=== PATIENT | male | born 1955 | race Caucasian/White ===

== ENCOUNTER 2020-09-22 | Outpatient (REF) | payer MEDICARE, SELFPAY | END 2020-09-22 00:01 | disposition home or self-care (01) | LOC: HO.LNP | PROVIDERS: Visit Provider Internal Medicine | DX: Z20.822 Contact with and (suspected) exposure to COVID-19 (principal); J06.9 Acute upper respiratory infection, unspecified | CPT/HCPCS: U0003; U0005 ==

== ENCOUNTER 2023-07-14 15:39 | Emergency (ER) | payer MEDICARE, SELFPAY ==
--- NOTE | ~2023-07-14 | CT_ITS ---
EXAMINATION: NONCONTRAST HEAD CT NONCONTRAST MAXILLOFACIAL CT NONCONTRAST CERVICAL SPINE CT INDICATION INFORMATION: Fall. COMPARISON: None. TECHNIQUE: Separate noncontrast CT examinations of the head, maxillofacial bones, and cervical spine were performed. Coronal and sagittal images were created for each examination at the technologist workstation. This CT examination was performed using dose optimization techniques as appropriate, variously including the following: *Automated exposure control *Adjustment of mA and/or kV according to patient size (this includes techniques or standardized protocols for targeted exams where dose is matched to indication/reason for exam; i.e. extremities or head) *Use of iterative reconstruction technique DLP: 1005 158 mGy-cm FINDINGS: Head: There is a 0.4 cm hyperdense focus in the anterior right frontal lobe (image 32 series 11) and a 5 mm hyperdense focus more superiorly in the anterior medial right frontal lobe (image 39 series 11). No evidence of edematous territorial infarction. No abnormal mass effect or midline shift is seen. Barron to white matter differentiation is well preserved. No extra-axial fluid collections are identified. No hydrocephalus. Proportional prominence of the ventricles and sulcal spaces is consistent with mild volume loss. Patchy periventricular and deep white matter hypoattenuation is consistent with mild small vessel ischemic changes. No calvarial fracture. The mastoid air cells are well aerated. Maxillofacial: Soft tissue thickening/hematoma in the right forehead. No acute maxillofacial fractures are seen. Mild reversal thickening of the paranasal sinuses. No air-fluid levels. The mandibular heads are well-seated in the condylar fossa. Severe degenerative facet arthritis of the left temporomandibular joint with associated increased sclerosis and thickening of the temporal bone. The orbits demonstrate a normal appearance bilaterally. The globes are intact, and there are no suspicious findings to suggest retrobulbar hemorrhage. Cervical spine: Straightening of the cervical lordosis. The atlantoaxial and atlantooccipital articulations are intact. No evidence of acute compression deformity or subluxation. Vertebral body heights are maintained. There is multilevel intervertebral disc space narrowing with endplate osteophyte formation and facet arthropathy. No prevertebral soft tissue swelling. No significant cervical soft tissue abnormality. Mild biapical subpleural thickening/scarring. The thyroid gland is unremarkable. CT/CT cervical spine wo IV con IMPRESSION: 1. There are 2 hyperdense foci in the anterior right frontal lobe measuring up to 5 mm. These could represent small parenchymal hemorrhages or hemorrhagic contusions in the setting of trauma, alternatively these could represent vascular tumors. Recommend further characterization with brain MRI with and without IV contrast. 2. Soft tissue thickening/hematoma in the right forehead. 3. No acute maxillofacial fractures. 4. No acute cervical fractures or malalignment. 5. Severe degenerative changes of the left temporomandibular joint with associated increased sclerosis and thickening of the temporal bone. This critical result was discussed with Lesa RITCHIE at 07/14/2023 6:09 PM and it was ascertained that the content and urgency of the report was understood at the time of direct communication.
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
[2023-07-14 16:18] VITALS: BP 157/84; PULSE 79; RESP 16; TEMP 36.7; O2SAT 97; BMI 28.7
[2023-07-14 18:51] VITALS: BP 177/94; PULSE 78; RESP 16; TEMP 37.2; O2SAT 98
[2023-07-14] MEDS: 0.9 % Sodium Chloride 1,000 ML 999 ML IV (19:30)
[2023-07-14] MEDS: Acetaminophen 325 MG TABLET 650 MG PO (19:30)
[2023-07-14 20:06] LABS: MANUAL DIFF FLAG NO
[2023-07-14 20:08] LABS: Basophils Absolute Auto 0.1 X10*3/uL (0.0-0.2); Basophils Percent Auto 0.6 % (0-2); Eosinophils Absolute Auto 0.1 X10*3/uL (0.0-0.4); Eosinophils Percent Auto 0.8 % (0-4); Hematocrit 40.6 % (42.0-52.0); Hemoglobin 14.4 g/dl (14.0-18.0); Imm Gran Abs Auto 0.02 X10*3/uL (0.00-0.03); Imm Gran Pct Auto 0.3 % (0.0-0.4); Lymphocytes Absolute Auto 1.9 X10*3/uL (1.2-4.9); Lymphocytes Percent Auto 23.8 % (20-40); Mean Corpuscular HGB Conc 35.5 g/dl (31.0-36.0); Mean Corpuscular Hemoglobin 32.1 pg (27.0-33.0); Mean Corpuscular Volume 90.6 fL (80.0-98.0); Mean Platelet Volume 10.6 fL (9.4-12.4); Monocytes Absolute Auto 0.7 X10*3/uL (0.1-1.2); Monocytes Percent Auto 9.3 % (2-11); Neutrophils Absolute Auto 5.1 x10*3/uL (2.0-8.3); Neutrophils Percent Auto 65.2 % (45-73); Platelet Count 179 X10*3/uL (160-400); Red Blood Count 4.48 X10*6/uL (4.60-5.80); Red Cell Distribution Width 12.1 % (11.0-16.0); White Blood Count 7.9 X10*3/uL (4.8-10.8)
[2023-07-14 20:17] LABS: Prothrombin Time 12.2 SEC (11.1-13.3)
[2023-07-14 20:21] LABS: Alanine Aminotransferase 21 U/L (0-40); Alkaline Phosphatase 66 U/L (39-117); Anion Gap 14 (12-20); Aspartate Amino Transferase 26 U/L (5-37); Bilirubin Total 0.7 mg/dL (0.0-1.0); Blood Urea Nitrogen 9 mg/dL (9-16); Calcium 8.5 mg/dL (8.4-10.2); Carbon Dioxide 25 mmol/L (22-29); Chloride 106 mmol/L (96-108); Creatinine Clr Calc Pharmacy 90.4; Estimated Glomerular Filt Rate > 60; Glucose Random 94 mg/dL (60-115); Potassium 3.6 mmol/L (3.3-5.1); Sodium 141 mmol/L (135-145); Total Protein 6.5 g/dL (6.5-8.0)
[2023-07-14 21:17] VITALS: BP 168/78; PULSE 78; RESP 17; TEMP 36.9; O2SAT 97
== END 2023-07-14 21:19 | disposition home or self-care (01) ==
PROVIDERS: Emergency Provider Internal Medicine; PCP Internal Medicine
DX: S06.30AA Unspecified focal traumatic brain injury with loss of consciousness status unknown, initial encounter (principal); F07.81 Postconcussional syndrome; R06.02 Shortness of breath; R51.9 Headache, unspecified; M54.2 Cervicalgia; V17.4XXA Pedal cycle driver injured in collision with fixed or stationary object in traffic accident, initial encounter; Y93.9 Activity, unspecified; Y92.410 Unspecified street and highway as the place of occurrence of the external cause; Y99.8 Other external cause status; Z79.899 Other long term (current) drug therapy
CPT/HCPCS: 36415; 70450; 70486; 72125; 80053; 85025; 85610; 99284

== ENCOUNTER 2023-10-13 10:28 | Emergency (ER) | payer MEDICARE, SELFPAY ==
--- NOTE | ~2023-10-13 | CT_ITS ---
EXAMINATION: CT HEAD WITHOUT CONTRAST CLINICAL INFORMATION: Right numbness, weakness, headache x1 week, recent intracranial hemorrhage. 68-year-old male. COMPARISON: 07/14/2023. TECHNIQUE: Contiguous axial imaging was performed from the skull base to vertex without intravenous administration of contrast. This CT examination was performed using dose optimization techniques as appropriate, variously including the following: *Automated exposure control *Adjustment of mA and/or kV according to patient size (this includes techniques or standardized protocols for targeted exams where dose is matched to indication/reason for exam; i.e. extremities or head) *Use of iterative reconstruction technique DLP: 601 mGy-cm FINDINGS: There is a large left superior hemispheric frontoparietal subdural acute on chronic hematoma present, measuring an estimated 10.3 x 1.7 x 5.2 cm (AP, TRV, CC) in dimensions. There is underlying mass effect and sulcal flattening on the frontal and anterior parietal lobes, with a resultant 7 mm [id number] midline shift. No ventricular trapping evident at this time. There is moderate effacement of the left lateral ventricle. The right lateral ventricle is mildly effaced but the temporal horn is nondilated. There is no evidence of acute territorial infarct at this time. There is no gross underlying edema. No additional definitive intra-axial or extra-axial hemorrhage is identified. There is no transtentorial herniation or uncal herniation. No uncal perching. Negative hyperdense MCA sign. Negative subinsular ribbon sign. Posterior fossa structures appear normal. Osseous structures demonstrate no definitive evidence of fracture. There are degenerative changes in both TM joints. Paranasal sinuses, mastoid air cells, and tympanic cavities are normally aerated. The globes and orbital contents appear normal. There are no extracranial soft tissue abnormalities. CT/CT head/brain wo IV con IMPRESSION: 1. Large left superior hemispheric frontoparietal subdural acute on chronic hematoma as detailed, resulting in a 7 mm [id number] midline shift. 2. No ventricular trapping, uncal herniation, or transtentorial herniation at this time. 3. No CT evidence of acute territorial infarct at this time. 4. No CT evidence of fracture. Neurosurgical consultation is advised. These emergent findings were discussed with Dr. Lesa Reeves via phone call 1:27 PM, today Electronically signed by: Shankar Horta MD 10/13/2023 01:47 PM EDT
[2023-10-13 11:00] VITALS: BP 99/70; PULSE 103; RESP 18; TEMP 36.7; O2SAT 96; BMI 27.5
--- NOTE | 2023-10-13 11:07 | ECG_ITS ---
Test Reason : weakness Blood Pressure : / mmHG Vent. Rate : 099 BPM Atrial Rate : 099 BPM P-R Int : 128 ms QRS Dur : 096 ms QT Int : 358 ms P-R-T Axes : 017 041 048 degrees QTc Int : 459 ms Normal sinus rhythm Normal ECG No previous ECGs available Referred By: Lesa Barrera Electronically Signed By:KIMBERLY VALENTE
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
[2023-10-13 11:53] LABS: MANUAL DIFF FLAG NO
[2023-10-13 11:55] LABS: Basophils Absolute Auto 0.1 X10*3/uL (0.0-0.2); Basophils Percent Auto 0.9 % (0-2); Eosinophils Absolute Auto 0.1 X10*3/uL (0.0-0.4); Hematocrit 45.5 % (42.0-52.0); Hemoglobin 16.4 g/dl (14.0-18.0); Imm Gran Abs Auto 0.04 X10*3/uL (0.00-0.03); Imm Gran Pct Auto 0.5 % (0.0-0.4); Lymphocytes Absolute Auto 1.7 X10*3/uL (1.2-4.9); Lymphocytes Percent Auto 21.2 % (20-40); Mean Corpuscular Hemoglobin 32.3 pg (27.0-33.0); Mean Corpuscular Volume 89.7 fL (80.0-98.0); Mean Platelet Volume 9.6 fL (9.4-12.4); Monocytes Absolute Auto 0.7 X10*3/uL (0.1-1.2); Neutrophils Absolute Auto 5.4 x10*3/uL (2.0-8.3); Neutrophils Percent Auto 67.4 % (45-73); Platelet Count 269 X10*3/uL (160-400); Red Blood Count 5.07 X10*6/uL (4.60-5.80); Red Cell Distribution Width 11.9 % (11.0-16.0); White Blood Count 8.1 X10*3/uL (4.8-10.8)
[2023-10-13 12:03] VITALS: BP 145/87; PULSE 96; RESP 25; TEMP 36.8; O2SAT 92
[2023-10-13 12:05] LABS: INTERNATIONAL NORM RATIO 0.9 (0.9-1.1); Prothrombin Time 10.8 SEC (11.1-13.3)
[2023-10-13 12:16] LABS: Troponin-I High Sensitivity < 2.7 ng/L (<3.5-35.0)
[2023-10-13 12:17] LABS: Alanine Aminotransferase 27 U/L (0-40); Albumin Level 4.3 g/dL (3.5-5.0); Alkaline Phosphatase 81 U/L (39-117); Anion Gap 15 (12-20); Aspartate Amino Transferase 25 U/L (5-37); Bilirubin Total 1.3 mg/dL (0.0-1.0); Blood Urea Nitrogen 13 mg/dL (9-16); Calcium 9.2 mg/dL (8.4-10.2); Carbon Dioxide 29 mmol/L (22-29); Chloride 97 mmol/L (96-108); Creatinine Clr Calc Pharmacy 80.3; Estimated Glomerular Filt Rate > 60; Glucose Random 102 mg/dL (60-115); Magnesium 2.3 mg/dL (1.6-2.6); Potassium 4.2 mmol/L (3.3-5.1); Sodium 137 mmol/L (135-145); Total Protein 7.2 g/dL (6.5-8.0)
[2023-10-13 12:26] LABS: Ethanol 80 mg/dL
[2023-10-13 12:29] LABS: Ammonia 32 umol/L (13-55)
[2023-10-13 12:59] LABS: Influenza A PCR NEGATIVE (Negative); Influenza B PCR NEGATIVE (Negative); Resp Syncy Virus RNA Qual PCR NEGATIVE (Negative); SARS COV2 PCR INHOUSE NEGATIVE (Negative)
--- NOTE | 2023-10-13 13:42 | PC.NURSE ---
nursing swallow test will not be performed per [employer], she wants him NPO
[2023-10-13 13:52] VITALS: BP 140/87; PULSE 91; RESP 20; TEMP 36.8; O2SAT 95
[2023-10-13 14:21] VITALS: BP 148/92; PULSE 98; RESP 20; TEMP 36.8; O2SAT 95
[2023-10-13 15:55] VITALS: BP 149/82; PULSE 102; RESP 18; TEMP 36.8; O2SAT 94
[2023-10-13 16:35] LABS: Appearance Urine Clear; Color Urine Yellow; Glucose Urine UA Negative (Negative); Leukocyte Esterase Urine Negative (Negative); Nitrite Urine Negative (Negative); UMIC TRIGGER UACC YES; Urine Blood Small (1+) (Negative); Urine Ketones Trace mg/dL (Negative); Urine Protein Negative (Neg-Trace)
[2023-10-13 16:45] LABS: Bacteria Urine None Seen (None Seen); Hyaline Casts Urine 0-2 /LPF (0-2); Squamous Epithelial Cell Urine 0-2 /HPF (0-2); WBC Urine 0-5 /HPF (0-5)
[2023-10-13] MEDS: Nicotine 21 MG PATCH.TD24 TRANSDERMA (17:09)
[2023-10-13 17:42] VITALS: BP 130/70; PULSE 100; RESP 18; TEMP 36.8; O2SAT 94
== END 2023-10-13 17:51 | disposition short-term general hospital (02) ==
PROVIDERS: Nurse Practitioner Family; Emergency Provider Emergency Medicine Emergency Medical Services; PCP Internal Medicine
DX: I62.01 Nontraumatic acute subdural hemorrhage (principal); I62.03 Nontraumatic chronic subdural hemorrhage; I10 Essential (primary) hypertension; R20.0 Anesthesia of skin; R29.704 NIHSS score 4; F10.90 Alcohol use, unspecified, uncomplicated; Y90.4 Blood alcohol level of 80-99 mg/100 ml; Z03.818 Encounter for observation for suspected exposure to other biological agents ruled out; Z79.899 Other long term (current) drug therapy
CPT/HCPCS: 0241U; 36415; 70450; 80053; 80307; 81001; 82140; 83735; 84484; 85025; 85610; 93005; 99285

== ENCOUNTER → 2023-10-13 11:07 | Outpatient (BNV) | payer MEDICARE, SELFPAY | PROVIDERS: Emergency Provider Emergency Medicine Emergency Medical Services; PCP Internal Medicine; Visit Provider Radiology Diagnostic Radiology | DX: R51.9 Headache, unspecified (principal) | CPT/HCPCS: 70450 ==